=== PATIENT | male | born 1975 | race African-American/Black ===

== ENCOUNTER 2017-01-02 13:42 | Emergency (ER) | payer SELFPAY ==
[~2017-01-02] VITALS: Ht 172.7 cm; Wt 190.0 kg
[~2017-01-02 13:42] MED LIST: LISI-515 PO
[2017-01-02 13:44] VITALS: BP 231/119; PULSE 89; RESP 18; TEMP 97.9; O2SAT 98
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
[2017-01-02 14:24] LABS: AUTOMATED NEUTROPHIL # 4.5 TH/MM3 (1.8-7.7); BASOPHIL % 0.4 % (0.0-2.0); EOSINOPHIL # 0.4 TH/MM3 (0-0.4); EOSINOPHIL % 5.1 % (0.0-4.0); HEMATOCRIT 36.4 % (39.0-51.0); LYMPH % 23.1 % (9.0-44.0); LYMPHOCYTE # 1.7 TH/MM3 (1.0-4.8); MEAN CELL VOLUME 74.7 FL (80.0-100.0); MEAN CORPUSCULAR HEMOGLOBIN 24.9 PG (27.0-34.0); MEAN CORPUSCULAR HGB CONC 33.3 % (32.0-36.0); MONO % 8.9 % (0.0-8.0); NEUT % 62.5 % (16.0-70.0); PLATELET COUNT 342 TH/MM3 (150-450); RED BLOOD COUNT 4.87 MIL/MM3 (4.50-5.90); RED CELL DISTRIBUTION WIDTH 16.7 % (11.6-17.2); WHITE BLOOD COUNT 7.2 TH/MM3 (4.0-11.0)
[2017-01-02 14:25] LABS: HEMO FLAGS AUTO DIFF
[2017-01-02 14:35] LABS: BACTERIA, URINE RARE /hpf; BLOOD, URINE SMALL (NEG); COMMENT (UR) CULT NOT INDICATED; CULTURE IF INDICATED CULT NOT INDICATED; GLUCOSE,URINE NEG (NEG); KETONE, URINE NEG (NEG); MUCUS URINE FEW /lpf (OCC); NITRITE,URINE NEG (NEG); SQUAMOUS EPITHELIAL CELL URINE 1 /hpf (0-5); URINE COLOR YELLOW (YELLW/STRAW)
[2017-01-02 14:40] LABS: BICARBONATE 28.5 MEQ/L (21.0-32.0); POTASSIUM 3.8 MEQ/L (3.5-5.1)
[2017-01-02 15:02] LABS: SCAN/DIFF AUTO DIFF CONFIRMED
[2017-01-02] MEDS ORDERED: TRIAMCINOLONE ACETONIDE 0.1% CREAM 15 GM TOPICAL ONE (17:30)
[2017-01-02] MEDS ORDERED: diphenhydrAMINE HCL 50 MG/ML VIAL IV PUSH ONE (17:30)
[2017-01-02] MEDS ORDERED: methylPREDNISolone SOD SUCC 125 MG/2 ML VIAL IV PUSH ONE (17:30)
[2017-01-02 17:56] VITALS: BP 181/84; PULSE 72; RESP 20; O2SAT 95
[2017-01-02] MEDS ORDERED: LISINOPRIL 20 MG TAB PO ONE (18:15)
[2017-01-02] MEDS ORDERED: TRIAM.1%T TOPICAL (18:41)
[2017-01-02] MEDS ORDERED: PRED50 PO (18:41)
--- NOTE | 2017-01-02 18:41 | PD ---
Physical Exam Date Seen by Provider: Jan 02, 2017 Narrative For full history and physical examination please see previous provider's note. I seem care of this patient upon his arrival to a medical bed. Data Data Last Documented VS Vital Signs Date Time Temp Pulse Resp B/P Pulse Ox O2 Delivery O2 Flow Rate FiO2 01/02/17 17:56 72 20 181/84 95 Room Air 01/02/17 13:44 97.9 Orders Complete Blood Count With Diff (01/02/17 14:00) Basic Metabolic Panel (Bmp) (01/02/17 14:00) Urinalysis - C+S If Indicated (01/02/17 14:00) Wound Culture And Gram Stain (01/02/17 17:25) Iv Access Insert/Monitor (01/02/17 17:25) Methylprednisolone So Succ Inj (Solumedr (01/02/17 17:30) Triamcinolone 0.1% Cream (Aristocort 0.1 (01/02/17 17:30) Diphenhydramine Inj (Benadryl Inj) (01/02/17 17:30) Lisinopril (Prinivil) (01/02/17 18:15) Labs Laboratory Tests Test 01/02/17 01/02/17 14:02 14:08 Urine Color YELLOW Urine Turbidity CLEAR Urine pH 6.0 Urine Specific [place] 1.024 Urine Protein TRACE mg/dL Urine Glucose (UA) NEG mg/dL Urine Ketones NEG mg/dL Urine Occult Blood SMALL Urine Nitrite NEG Urine Bilirubin NEG Urine Urobilinogen 2.0 MG/DL Urine Leukocyte Esterase MOD Urine RBC 5 /hpf Urine WBC 6 /hpf Urine Squamous Epithelial 1 /hpf Cells Urine Bacteria RARE /hpf Urine Mucus FEW /lpf Microscopic Urinalysis Comment CULT NOT INDICATED White Blood Count 7.2 TH/MM3 Red Blood Count 4.87 MIL/MM3 Hemoglobin 12.1 GM/DL Hematocrit 36.4 % Mean Corpuscular Volume 74.7 FL Mean Corpuscular Hemoglobin 24.9 PG Mean Corpuscular Hemoglobin 33.3 % Concent Red Cell Distribution Width 16.7 % Platelet Count 342 TH/MM3 Mean Platelet Volume 6.9 FL Neutrophils (%) (Auto) 62.5 % Lymphocytes (%) (Auto) 23.1 % Monocytes (%) (Auto) 8.9 % Eosinophils (%) (Auto) 5.1 % Basophils (%) (Auto) 0.4 % Neutrophils # (Auto) 4.5 TH/MM3 Lymphocytes # (Auto) 1.7 TH/MM3 Monocytes # (Auto) 0.6 TH/MM3 Eosinophils # (Auto) 0.4 TH/MM3 Basophils # (Auto) 0.0 TH/MM3 CBC Comment AUTO DIFF Differential Comment AUTO DIFF CONFIRMED Sodium Level 141 MEQ/L Potassium Level 3.8 MEQ/L Chloride Level 107 MEQ/L Carbon Dioxide Level 28.5 MEQ/L Anion Gap 6 MEQ/L Blood Urea Nitrogen 10 MG/DL Creatinine 0.97 MG/DL Estimat Glomerular Filtration 104 ML/MIN Rate Random Glucose 95 MG/DL Calcium Level 8.3 MG/DL [facility] Medical Record Reviewed: Yes Supervised Visit with JENNIFER: No Interpretation(s) Laboratory Tests Test 01/02/17 01/02/17 14:02 14:08 Urine Color YELLOW Urine Turbidity CLEAR Urine pH 6.0 Urine Specific [place] 1.024 Urine Protein TRACE mg/dL Urine Glucose (UA) NEG mg/dL Urine Ketones NEG mg/dL Urine Occult Blood SMALL Urine Nitrite NEG Urine Bilirubin NEG Urine Urobilinogen 2.0 MG/DL Urine Leukocyte Esterase MOD Urine RBC 5 /hpf Urine WBC 6 /hpf Urine Squamous Epithelial 1 /hpf Cells Urine Bacteria RARE /hpf Urine Mucus FEW /lpf Microscopic Urinalysis Comment CULT NOT INDICATED White Blood Count 7.2 TH/MM3 Red Blood Count 4.87 MIL/MM3 Hemoglobin 12.1 GM/DL Hematocrit 36.4 % Mean Corpuscular Volume 74.7 FL Mean Corpuscular Hemoglobin 24.9 PG Mean Corpuscular Hemoglobin 33.3 % Concent Red Cell Distribution Width 16.7 % Platelet Count 342 TH/MM3 Mean Platelet Volume 6.9 FL Neutrophils (%) (Auto) 62.5 % Lymphocytes (%) (Auto) 23.1 % Monocytes (%) (Auto) 8.9 % Eosinophils (%) (Auto) 5.1 % Basophils (%) (Auto) 0.4 % Neutrophils # (Auto) 4.5 TH/MM3 Lymphocytes # (Auto) 1.7 TH/MM3 Monocytes # (Auto) 0.6 TH/MM3 Eosinophils # (Auto) 0.4 TH/MM3 Basophils # (Auto) 0.0 TH/MM3 CBC Comment AUTO DIFF Differential Comment AUTO DIFF CONFIRMED Sodium Level 141 MEQ/L Potassium Level 3.8 MEQ/L Chloride Level 107 MEQ/L Carbon Dioxide Level 28.5 MEQ/L Anion Gap 6 MEQ/L Blood Urea Nitrogen 10 MG/DL Creatinine 0.97 MG/DL Estimat Glomerular Filtration 104 ML/MIN Rate Random Glucose 95 MG/DL Calcium Level 8.3 MG/DL Vital Signs Date Time Temp Pulse Resp B/P Pulse Ox O2 Delivery O2 Flow Rate FiO2 01/02/17 17:56 72 20 181/84 95 Room Air 01/02/17 13:44 97.9 89 18 231/119 98 Differential Diagnosis Psoriasis versus eczema versus allergic reaction versus contact dermatitis versus hypertensive urgency versus elevated BP versus other Narrative Course Patient is a 41-year-old male presenting to emergency for evaluation of a rash to his bilateral arms and neck. Patient reports it's been ongoing for approximately one week, he has a history of psoriasis. He no longer has a primary care provider. He reports it as being very itchy he denies any fevers, chills, shortness of breath, chest pain. Patient also reports a boil to his right inner thigh that spontaneously drained. This is been there for several weeks. Patient has no other complaints at this time. He does state that he is under a lot of stress secondary to losing his job. CBC is unremarkable, eosinophils are slightly elevated. Chemistry is unremarkable Urinalysis with small amount of occult blood, 5 red blood cells, 6 WBCs. BP was elevated 231/119 on arrival, patient has not taken his lisinopril today, he states that he forgot. Blood pressure was reassessed at 6 PM at 181/84. Patient was given dose of lisinopril now. Patient was also given Solu-Medrol, Benadryl, topical triamcinolone cream. Patient is advised to follow-up with his primary care provider or with a police clerk. He can also follow-up at the [facility]. Take his blood pressure medications every day to avoid rebound hypertension. Patient was educated on medications that he was prescribed today again patient was encouraged to follow-up with a police clerk for further evaluation and management. Patient verbalized understanding of instructions. Patient is stable for discharge. Diagnosis Primary Impression: Benign essential hypertension Additional Impression: Psoriasis Referrals: Assistant Chief Nursing Officer Primary Care Physician Patient Instructions: General Instructions, Hypertension (ED), Psoriasis (ED) Additional Instruction: Follow-up at [facility] or with your primary care provider Follow-up with a police clerk Take your blood pressure medication on a daily basis, do not skip doses to avoid rebound hypertension Return to emergency department for any new or worsening symptoms Use medications as directed Med/Other Pt SpecificInfo: Prescription(s) given Scripts Triamcinolone Topical 0.1 % Oint1 Applic TOPICAL BID #60 GM Ref 0 Prov:Juliana Chua 01/02/17 Prednisone 50 Mg Tab50 Mg PO DAILY #3 TAB Ref 0 Prov:Juliana Chua 01/02/17 Condition: Stable Juliana Chua Jan 02, 2017 18:41
== END 2017-01-02 19:13 | disposition home or self-care (01) ==
LOC: NEPE 13:42
DX: I10 Essential (primary) hypertension (principal); L40.9 Psoriasis, unspecified
CPT/HCPCS: 80048; 81001; 85025; 86403; 87070; 87077; 87186; 87205; 96374; 96375; 99283; J1200; J2930

== ENCOUNTER 2017-04-09 14:04 | Emergency (ER) | payer SELFPAY ==
[~2017-04-09] VITALS: Ht 172.7 cm; Wt 180.0 kg
[~2017-04-09 14:04] MED LIST changes: +PRED50 PO; +TRIAM.1%T TOPICAL
[2017-04-09 14:06] VITALS: BP 226/109; PULSE 77; RESP 15; TEMP 98.2; O2SAT 99
[2017-04-09] MEDS ORDERED: LIDOCAINE HCL 1% 50 ML VIAL INFIL ONE (14:30)
[2017-04-09] MEDS ORDERED: BACT800T5 PO (14:58)
--- NOTE | 2017-04-09 14:58 | PD ---
HPI Chief Complaint: Skin Problem Time Seen by Provider: 14:18 Travel History International Travel<30 days: No Contact w/Intl Traveler<30days: No Traveled to known affect area: No History of Present Illness HPI 41-year-old man presents emergent [place] of a boil on his right leg. He states he been more painful red and swollen and draining some purulent drainage for the past couple days. Worsening. Has similar symptoms one time before. No other complaints. History Past Medical History Medical History: Denies Significant Hx PNEUMOCCOCAL Vaccine (Year): 2 Social History Alcohol Use: Yes Tobacco Use: Yes Allergies-Medications (Allergen,Severity, Reaction): Coded Allergies: Penicillin (Verified Allergy, Severe, HIVES, 01/02/17) *MDRO Multi-Drug Resistant Organism (Verified Adverse Reaction, Unknown, ) MRSA (leg)-01/02/17 Reported Meds & Prescriptions Reported Meds & Active Scripts Active Triamcinolone Topical (Triamcinolone Acetonide) 0.1 % Oint 1 Applic TOPICAL BID Prednisone 50 Mg Tab 50 Mg PO DAILY Reported Lisinopril 20 Mg Tab 20 Mg PO DAILY Review of Systems Except as stated in HPI: all other systems reviewed are Neg Physical Exam Narrative GENERAL: Morbidly obese 41-year-old man, no acute distress. SKIN: Warm and dry. CARDIOVASCULAR: Warm and well perfused. RESPIRATORY: Normal rate and effort. MUSCULOSKELETAL: Obese thigh, on the medial side of the right leg, there is some erythema redness. There is multiple scarring. There is some spontaneous drainage. NEUROLOGICAL: Awake and alert. No gross deficits. Data Data Last Documented VS Vital Signs Date Time Temp Pulse Resp B/P Pulse Ox O2 Delivery O2 Flow Rate FiO2 04/09/17 14:06 98.2 77 15 226/109 99 Orders Lidocaine 1% Inj (50 Ml) (Xylocaine 1% I (04/09/17 14:30) MDM Medical Decision Making Medical Screen Exam Complete: Yes Emergency Medical Condition: Yes Differential Diagnosis Abscess, scarring, cellulitis, other Narrative Course Medical decision making 41-year-old male with abscess was read in her thigh. Straining a little bit but needed to be open more. I&D is performed the bedside. We'll place on antibiotics. Outpatient follow-up. Procedures Procedure Narrative INCISION AND DRAINAGE OF ABSCESS: The area was prepped and was sterilely draped. A subcutaneous wheal of % Xylocaine 1 with a total number for mL was used to anesthetize the area. The area was properly anesthetized. A number 11 scalpel was used to make a 1-cm incision across the area of the abscess. Cultures were obtained. The abscess was drained an irrigated with normal saline. Quarter inch iodoform packing was placed in the wound. Sterile dressing applied. Patient advised to have packing removed in two days. Diagnosis Primary Impression: Abscess of right thigh Additional Instructions: Take Bactrim as prescribed. Apply warm compresses several times daily. Return to the emergency department for any new or worsening symptoms. Med/Other Pt SpecificInfo: Prescription(s) given Scripts Sulfamethoxazole-Trimethoprim (Bactrim DS)800-160 Mg Tab1 Tab PO BID 7 Days Prov:Ephraim Timmons MD 04/09/17 Disposition: 01 DISCHARGE HOME Condition: Stable Ephraim Timmons MD Apr 09, 2017 14:58
== END 2017-04-09 15:14 | disposition home or self-care (01) ==
LOC: NEPD 14:04
DX: L02.415 Cutaneous abscess of right lower limb (principal); Z72.0 Tobacco use
CPT/HCPCS: 10061

== ENCOUNTER 2017-07-24 12:37 | Emergency (ER) | payer OTHER ==
[~2017-07-24] VITALS: Ht 170.2 cm; Wt 180.0 kg
[~2017-07-24 12:37] MED LIST changes: +BACT800T5 PO
[2017-07-24 12:38] VITALS: BP 205/132; PULSE 102; RESP 24; TEMP 99.1; O2SAT 98
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
[2017-07-24] MEDS ORDERED: NAPROXEN 500 MG TAB PO ONE (13:00)
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
[2017-07-24] MEDS ORDERED: METO50TA PO (13:12)
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
[2017-07-24] MEDS ORDERED: MELO7.5T4 PO (14:06)
[2017-07-24 14:13] VITALS: BP 172/92
== END 2017-07-24 14:31 | disposition home or self-care (01) ==
LOC: NEPD 12:37
DX: M17.11 Unilateral primary osteoarthritis, right knee (principal); M54.5 Low back pain; J45.909 Unspecified asthma, uncomplicated; I10 Essential (primary) hypertension; V49.59XA Passenger injured in collision with other motor vehicles in traffic accident, initial encounter; Y92.410 Unspecified street and highway as the place of occurrence of the external cause; Z72.0 Tobacco use
CPT/HCPCS: 72100; 73564; 99284

== ENCOUNTER 2017-12-19 07:32 | Emergency (ER) | payer SELFPAY ==
[~2017-12-19] VITALS: Ht 172.7 cm; Wt 180.0 kg
[~2017-12-19 07:32] MED LIST changes: -BACT800T5 PO; +MELO7.5T27 PO; +METO50TA PO; -PRED50 PO; -TRIAM.1%T TOPICAL
[2017-12-19 07:35] VITALS: BP 259/136; PULSE 94; RESP 16; TEMP 98.1; O2SAT 98
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
[2017-12-19] MEDS ORDERED: CLON0.1T PO (07:45)
[2017-12-19] MEDS ORDERED: cloNIDine HCL 0.1 MG TAB PO ONE (08:00)
[2017-12-19] MEDS ORDERED: LISINOPRIL 20 MG TAB PO ONE (08:00)
[2017-12-19] MEDS ORDERED: LISI-515 PO (08:56)
[2017-12-19] MEDS ORDERED: METO50TA PO (08:56)
== END 2017-12-19 10:05 | disposition home or self-care (01) ==
LOC: NEPE 07:32
DX: I10 Essential (primary) hypertension (principal); E66.01 Morbid (severe) obesity due to excess calories; R51 Headache; J45.909 Unspecified asthma, uncomplicated; Z91.14 Patient's other noncompliance with medication regimen; Z72.0 Tobacco use
CPT/HCPCS: 99283

== ENCOUNTER 2018-07-29 03:49 | Inpatient (IN) ==
--- NOTE | 2018-07-29 04:11 | ED ---
HPI General Chief Complaint: Headache Stated Complaint: Medical Time Seen by Provider: 07/29/18 04:01 Source: patient Mode of arrival: ambulatory Limitations: no limitations History of Present Illness HPI Narrative: The patient is a 43-year-old super morbidly obese male with a BMI over 60 presenting with complaint of headache and a blood pressure of 233/ 126 at bedside and 243/125 at triage. Patient is taking lisinopril and hydrochlorothiazide but she ran last week and has not had any medications for 7 days. Admits to hypertension no other medical problems. Stated headache started earlier last night around 8 PM and gradually progress throughout the night. He denies nausea vomiting. MD Complaint: headache Onset (ago): hour(s) (8) Onset description: gradual Location: diffuse Severity: severe Severity scale (1-10): 10 Quality: aching and throbbing Relieving factors: nothing Exacerbating factors: none Associated symptoms: nausea Treatments prior to arrival: none Related Data Home Medications Medication Instructions Recorded Confirmed hydrochlorothiazide 25 mg PO DAILY 07/29/18 07/29/18 lisinopril 10 mg PO DAILY 07/29/18 07/29/18 Allergies Allergy/AdvReac Type Severity Reaction Status Date / Time penicillin G Allergy Severe HIVES Unverified 07/29/18 03:53 *MDRO Multi-Drug Resistant AdvReac Unknown Confusion Uncoded 07/29/18 03:53 Organism Review of Systems ROS: all other systems reviewed are negative [facility] Medical History Medical History Hypertension (Acute) Surgical History Surgical History History of surgery on arm (Acute) Social History Social History Substance History: No History of Abuse Smoking Status: Former smoker How Often Do You Have a Drink Containing Alcohol: Monthly or less Recent Travel in [facility] within the Last 8 Weeks: No Recent Out of Country Travel within the Last 8 Weeks: No Immunization History Tetanus Immunization: Unsure Hx Influenza Vaccine This Season: No Exam Narrative Exam Narrative: GENERAL: Alert and oriented in mild distress due to headache/ migraine SKIN: Focused skin assessment warm/dry. HEAD: Atraumatic. Normocephalic. EYES: Pupils equal and round. No scleral icterus. No injection or drainage. ENT: No nasal bleeding or discharge. Mucous membranes pink and moist. NECK: Trachea midline. No JVD. CARDIOVASCULAR: Regular rate and rhythm. No murmur appreciated. RESPIRATORY: No accessory muscle use. Clear to auscultation. Breath sounds equal bilaterally. GASTROINTESTINAL: Morbidly obese, abdomen soft, non-tender, nondistended. Hepatic and splenic margins not palpable. MUSCULOSKELETAL: No obvious deformities. No clubbing. No cyanosis. No edema. NEUROLOGICAL: Awake and alert. No obvious cranial nerve deficits. Motor grossly within normal limits. Normal speech. PSYCHIATRIC: Appropriate mood and affect; insight and judgment normal. Course Reevaluation(s) Reevaluation #1: Blood pressure still elevated after 0.2 of clonidine will give Vasotec 2.5 IV. Headache has improved at this time. Time: 05:03 Reevaluation #2: Patient with persistently elevated BP of 195/94 after clonidine and Vasotec IV. Will placed on Cardene drip. Headache states is improving. Time: 05:58 Initial Documented Vital Signs Temperature 97.7 F 07/29/18 03:53 Pulse Rate 101 H 07/29/18 03:53 Respiratory Rate 23 07/29/18 03:53 Blood Pressure 243/125 H 07/29/18 03:53 Pulse Oximetry 94 L 07/29/18 03:53 Last Documented Vital Signs Temperature 97.7 F 07/29/18 03:53 Pulse Rate 92 H 07/29/18 05:46 Respiratory Rate 18 07/29/18 04:04 Blood Pressure 195/94 H 07/29/18 05:46 Pulse Oximetry 97 07/29/18 05:02 Critical Care Time Critical Care Time: Yes Total Critical Care Time: 45 Attestation: Aggregate critical care time was 45 minutes. Time to perform other separately billable procedures was not included in the critical care time. My time did not include minutes spent treating any other patients simultaneously or on activities that did not directly contribute to the patient's treatment. The services I provided to this patient were to treat and/or prevent clinically significant deterioration that could result in: Loss of current lifestyle. Permanent disability and/or I provided critical care services requiring my management, as noted below: Chart data review, documentation time, medication orders and management, vital sign assessments/reviewing monitor data, ordering and reviewing lab tests, ordering and interpreting/reviewing x-rays and diagnostic studies, care of the patient and discussion of the patient with the admitting physicians. Medical Decision Making MDM Narrative Medical Screen Exam Complete: Yes Emergency Medical Condition: Yes Lab Data Result diagrams: 07/29/18 04:10 07/29/18 04:10 Lab Results 07/29/18 07/29/18 07/29/18 Range/Units 04:10 04:10 04:10 WBC 9.1 (4.0-11.0) th/mm3 RBC 5.12 (4.50-5.90) mil/mm3 Hgb 12.4 L (13.0-17.0) gm/dL Hct 37.4 L (39.0-51.0) % MCV 73.1 L (80.0-100.0) fL MCH 24.2 L (27.0-34.0) pg MCHC 33.1 (32.0-36.0) % RDW 18.3 H (11.6-17.2) % Plt Count 411 (150-450) th/mm3 MPV 7.5 (7.0-11.0) fL Neut % (Auto) 60.2 (16.0-70.0) % Lymph % (Auto) 26.2 (9.0-44.0) % [place] % (Auto) 9.4 H (0.0-8.0) % Eos % (Auto) 2.9 (0.0-4.0) % Baso % (Auto) 1.3 (0.0-2.0) % Neut # (Auto) 5.5 (1.8-7.7) th/mm3 Lymph # (Auto) 2.4 (1.0-4.8) th/mm3 [place] # (Auto) 0.9 (0.0-0.9) th/mm3 Eos # (Auto) 0.3 (0.0-0.4) th/mm3 Baso # (Auto) 0.1 (0.0-0.2) th/mm3 WBC Differential . Differential Comment Auto diff final Sodium 142 (136-145) meq/L Potassium 4.1 (3.5-5.1) meq/L Chloride 109 H (98-107) meq/L Carbon Dioxide 22.4 (21.0-32.0) meq/L Anion Gap 11 (5-15) meq/L BUN 11 (7-18) mg/dL Creatinine 0.96 (0.60-1.30) mg/dL Estimated GFR Greater than 89 (>89) mL/min Random Glucose 103 (74-106) mg/dL Calcium 8.0 L (8.5-10.1) mg/dL Troponin I 0.02 (0.02-0.05) ng/mL B-Natriuretic Peptide 56 (0-100) pg/mL Urine Color (Yellw/Straw) Urine Clarity (Clear) Urine pH (5.0-8.5) Ur Specific [place] (1.002-1.035) Urine Protein (Neg-Trace) mg/dL Urine Glucose (UA) (Negative) mg/dL Urine Ketones (Negative) mg/dL Urine Occult Blood (Negative) Urine Nitrate (Negative) Urine Bilirubin (Negative) Urine Urobilinogen (Less than 2) mg/dL Ur Leukocyte Esterase (Negative) Urine RBC (0-3) /hpf Urine WBC (0-5) /hpf Ur Squamous Epith Cells (0-5) /hpf Urine Mucus (Occasional) /lpf Ur Microscopic Review Urine Opiates Screen (Neg) Ur Barbiturates Screen (Neg) Ur Amphetamines Screen (Neg) U Benzodiazepines Scrn (Neg) Urine Cocaine Screen (Neg) U Cannabinoids Screen (Neg) 07/29/18 07/29/18 Range/Units 04:49 04:49 WBC (4.0-11.0) th/mm3 RBC (4.50-5.90) mil/mm3 Hgb (13.0-17.0) gm/dL Hct (39.0-51.0) % MCV (80.0-100.0) fL MCH (27.0-34.0) pg MCHC (32.0-36.0) % RDW (11.6-17.2) % Plt Count (150-450) th/mm3 MPV (7.0-11.0) fL Neut % (Auto) (16.0-70.0) % Lymph % (Auto) (9.0-44.0) % [place] % (Auto) (0.0-8.0) % Eos % (Auto) (0.0-4.0) % Baso % (Auto) (0.0-2.0) % Neut # (Auto) (1.8-7.7) th/mm3 Lymph # (Auto) (1.0-4.8) th/mm3 [place] # (Auto) (0.0-0.9) th/mm3 Eos # (Auto) (0.0-0.4) th/mm3 Baso # (Auto) (0.0-0.2) th/mm3 WBC Differential Differential Comment Sodium (136-145) meq/L Potassium (3.5-5.1) meq/L Chloride (98-107) meq/L Carbon Dioxide (21.0-32.0) meq/L Anion Gap (5-15) meq/L BUN (7-18) mg/dL Creatinine (0.60-1.30) mg/dL Estimated GFR (>89) mL/min Random Glucose (74-106) mg/dL Calcium (8.5-10.1) mg/dL Troponin I (0.02-0.05) ng/mL B-Natriuretic Peptide (0-100) pg/mL Urine Color Straw (Yellw/Straw) Urine Clarity Clear (Clear) Urine pH 5.0 (5.0-8.5) Ur Specific [place] 1.009 (1.002-1.035) Urine Protein Negative (Neg-Trace) mg/dL Urine Glucose (UA) Negative (Negative) mg/dL Urine Ketones Negative (Negative) mg/dL Urine Occult Blood Small H (Negative) Urine Nitrate Negative (Negative) Urine Bilirubin Negative (Negative) Urine Urobilinogen Less than 2 (Less than 2) mg/dL Ur Leukocyte Esterase Negative (Negative) Urine RBC Less than 1 (0-3) /hpf Urine WBC 2 (0-5) /hpf Ur Squamous Epith Cells <1 (0-5) /hpf Urine Mucus Few H (Occasional) /lpf Ur Microscopic Review Not Reportable Urine Opiates Screen Neg (Neg) Ur Barbiturates Screen Neg (Neg) Ur Amphetamines Screen Neg (Neg) U Benzodiazepines Scrn Neg (Neg) Urine Cocaine Screen Neg (Neg) U Cannabinoids Screen Pos H (Neg) Imaging Data Radiologist's impression: Chest X-Ray 07/29/18 04:05 CONCLUSION: No acute cardiopulmonary disease identified. Head CT 07/29/18 04:06 CONCLUSION: 1. No acute intracranial findings. 2. Left-sided maxillary sinus disease. . ECG Data Attestation: I personally reviewed and interpreted this ECG as follows: Interpretation: Normal sinus rhythm 93 bpm LVH noted nonspecific ST-T wave abnormalities QTc 429 MS AK interval 179 Discharge Plan Discharge Disposition Patient Disposition: 30 Still Patient Discharge Condition Condition: Serious Discharge Details Diagnosis: Hypertensive emergency without congestive heart failure, Non compliance w medication regimen, Hematuria, Headache Physicians Team ED Provider: Dylon Srinivasan Primary Care Provider: Primary Care Hermelinda Krishna Attending Provider: Nixon Noble Discharge Interventions Interventions: Vital Signs Last Done: 07/29/18 05:46 Status ED Status: Admitted Patient
[2018-07-29 04:19] LABS: Baso # (Auto) 0.1 th/mm3 (0.0-0.2); Baso % (Auto) 1.3 % (0.0-2.0); Eos # (Auto) 0.3 th/mm3 (0.0-0.4); Eos % (Auto) 2.9 % (0.0-4.0); Hematocrit 37.4 % (39.0-51.0); Hemoglobin 12.4 gm/dL (13.0-17.0); Lymph # (Auto) 2.4 th/mm3 (1.0-4.8); Lymph % (Auto) 26.2 % (9.0-44.0); Mean Corpuscular HGB Conc 33.1 % (32.0-36.0); Mean Corpuscular Hemoglobin 24.2 pg (27.0-34.0); Mean Corpuscular Volume 73.1 fL (80.0-100.0); Mean Platelet Volume 7.5 fL (7.0-11.0); Mono # (Auto) 0.9 th/mm3 (0.0-0.9); Mono % (Auto) 9.4 % (0.0-8.0); Neut # (Auto) 5.5 th/mm3 (1.8-7.7); Neut % (Auto) 60.2 % (16.0-70.0); Platelet Count 411 th/mm3 (150-450); Red Blood Count 5.12 mil/mm3 (4.50-5.90); Red Cell Distribution Width 18.3 % (11.6-17.2); White Blood Count 9.1 th/mm3 (4.0-11.0)
--- NOTE | 2018-07-29 04:34 | CT ---
EXAM DATE: 07/29/2018 4:21 AM EDT AGE/SEX: 43 years / Male INDICATIONS: Headaches. CLINICAL DATA: This is the patient's initial encounter. Patient reports that signs and symptoms have been present for 1 day and indicates a pain score of 10/10. MEDICAL/SURGICAL HISTORY: Hypertension. None. RADIATION DOSE: 64.63 CTDI (mGy) COMPARISON: [facility] [place], CT BRAIN W/O CONTRAST, 10/12/2016. . TECHNIQUE: CT of the head without contrast. Using automated exposure control and adjustment of the mA and/or kV according to patient size, radiation dose was kept as low as reasonably achievable to ob tain optimal diagnostic quality images. DICOM format image data is available electronically for revi ew and comparison. FINDINGS: Cerebrum: The ventricles are normal for age. No evidence of midline shift, mass lesion, hemorrhage or acute infarction. No extraaxial fluid collections are seen. Posterior Fossa: The cerebellum and brainstem are intact. The 4th ventricle is midline. The cerebe llopontine angle is unremarkable. Extracranial: Partial opacification of the left maxillary sinus with 1 cm polyp or retention cyst an teriorly. Skull: The calvaria is intact. No evidence of skull fracture. CONCLUSION: 1. No acute intracranial findings. 2. Left-sided maxillary sinus disease. . Electronically signed by: Isac Jolly MD 07/29/2018 4:32 AM EDT
--- NOTE | 2018-07-29 04:35 | XR ---
EXAM DATE: 07/29/2018 4:18 AM EDT AGE/SEX: 43 years / Male INDICATIONS: Short of breath. CLINICAL DATA: This is the patient's initial encounter. Patient reports that signs and symptoms have been present for 1 day and indicates a pain score of 0/10. MEDICAL/SURGICAL HISTORY: Hypertension. None. COMPARISON: [facility] [place], CHEST SINGLE AP, 10/12/2016. . FINDINGS: Single AP view the chest The lungs are clear. Cardiomediastinal silhouette unchanged. No evidence of pleural effusion or pneumothorax. CONCLUSION: No acute cardiopulmonary disease identified. Electronically signed by: Isac Jolly MD 07/29/2018 4:33 AM EDT
[2018-07-29 04:41] LABS: Troponin I 0.02 ng/mL (0.02-0.05)
[2018-07-29 04:42] LABS: Anion Gap 11 meq/L (5-15); Blood Urea Nitrogen 11 mg/dL (7-18); Carbon Dioxide 22.4 meq/L (21.0-32.0); Chloride 109 meq/L (98-107); Glomerular Filtration Rate Greater Than 89 mL/min (>89); Glucose,Random 103 mg/dL (74-106); Potassium 4.1 meq/L (3.5-5.1); Sodium 142 meq/L (136-145)
[2018-07-29] MEDS ORDERED: Butalbital/APAP/Caff 50/325/40 MG Tablet PO ONE (05:05)
[2018-07-29 05:19] LABS: Amphetamine Screen,Urine Neg (Neg); Barbiturate Screen,Urine Neg (Neg); Cannabinoid Screen,Urine Pos (Neg); Cocaine Screen,Urine Neg (Neg)
[2018-07-29 05:21] LABS: Bilirubin,Urine Negative (Negative); Clarity,Urine Clear (Clear); Color,Urine Straw (Yellw/Straw); Glucose,Urine (UA) Negative (Negative); Leukocyte Esterase,Urine Negative (Negative); Mucus,Urine Few /lpf (Occasional); Nitrite,Urine Negative (Negative); Specific Gravity,Urine 1.009 (1.002-1.035); Squamous Epithelial Cell,Urine <1 /hpf (0-5)
[2018-07-29 05:22] LABS: Opiate Screen,Urine Neg (Neg)
[2018-07-29] MEDS ORDERED: niCARdipine Inj 25 MG in Sodium Chlor 0.9% Inj 240 ML IV.CONT PRN (05:48)
[2018-07-29] MEDS ORDERED: Bisacodyl 10 MG Supp RECTAL PRN (06:18)
[2018-07-29] MEDS: Lisinopril 10 MG Tablet PO SCH (08:20)
[2018-07-29] MEDS: hydroCHLOROthiazide 25 MG Tablet PO SCH (08:20)
[2018-07-29] MEDS: Metoprolol Tartrate 50 MG Tablet PO SCH ×3 (09:20→17:03)
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
--- NOTE | 2018-07-29 18:22 | ECG ---
Date Performed: 07/29/2018 Time Performed: 04:11:54 PTAGE: 43 years EKG: Sinus rhythm LEFT VENTRICULAR HYPERTROPHY AND ST-T CHANGE Since the previous tracing, no significant change noted ABNORMAL ECG NO PREVIOUS TRACING DOCTOR: Da Mann Interpretating Date/Time 07/29/2018 18:19:59
[2018-07-30 08:02] LABS: Chol/HDL Ratio 2.08 Ratio; HDL Cholesterol 37.8 mg/dL (40.0-60.0)
[2018-07-30] MEDS: Metoprolol Tartrate 50 MG Tablet PO SCH ×3 (09:31→19:15)
[2018-07-30] MEDS: Lisinopril 10 MG Tablet PO SCH (09:31)
[2018-07-30] MEDS: hydroCHLOROthiazide 25 MG Tablet PO SCH (09:31)
[2018-07-30] MEDS ORDERED: Lisinopril 10 MG Tablet PO ONE (17:00)
--- NOTE | 2018-07-30 17:01 | P.PN ---
Subjective Interval history: Nursing denies any deterioration since last night. Patient himself says he feels good. Wants to go home. Denies any headache. Physical Exam Vital signs: Vital Signs 07/29/18 18:00 07/29/18 19:00 07/29/18 20:00 Temperature 98.5 F Pulse Rate 74 64 56 L Respiratory Rate 18 Blood Pressure 160/96 H Pulse Oximetry 98 07/29/18 21:00 07/29/18 22:00 07/29/18 23:00 Temperature Pulse Rate 62 58 L 58 L Respiratory Rate Blood Pressure Pulse Oximetry 07/30/18 00:00 07/30/18 01:00 07/30/18 02:00 Temperature 98.3 F Pulse Rate 58 L 54 L 54 L Respiratory Rate 18 Blood Pressure 156/97 H Pulse Oximetry 98 07/30/18 03:00 07/30/18 03:30 07/30/18 04:00 Temperature 98.4 F Pulse Rate 56 L 53 L 58 L Respiratory Rate 18 Blood Pressure 180/106 H Pulse Oximetry 97 07/30/18 04:30 07/30/18 05:00 07/30/18 05:30 Temperature Pulse Rate 58 L 67 54 L Respiratory Rate Blood Pressure 174/79 H 172/89 H Pulse Oximetry 07/30/18 06:00 07/30/18 06:23 07/30/18 07:00 Temperature Pulse Rate 58 L 57 L 57 L Respiratory Rate Blood Pressure 159/88 H Pulse Oximetry 07/30/18 08:00 07/30/18 09:00 07/30/18 09:31 Temperature 97.8 F Pulse Rate 54 L 64 65 Respiratory Rate 18 Blood Pressure 153/91 H Pulse Oximetry 95 07/30/18 10:00 07/30/18 11:00 07/30/18 12:00 Temperature 98.5 F Pulse Rate 58 L 58 L 56 L Respiratory Rate 18 Blood Pressure 170/94 H Pulse Oximetry 98 07/30/18 13:00 07/30/18 14:00 07/30/18 15:00 Temperature Pulse Rate 52 L 51 L 51 L Respiratory Rate Blood Pressure Pulse Oximetry 07/30/18 15:35 07/30/18 16:00 Temperature 97.9 F Pulse Rate 49 L 61 Respiratory Rate 18 Blood Pressure 174/101 H Pulse Oximetry 95 Intake & Output 07/29/18 07/30/18 07/30/18 18:59 06:59 18:59 Intake Total 960 / 960 480 / 480 Output Total 475 / 475 Balance 960 / 960 5 / 5 Weight 222.2 kg Intake: Oral 960 / 960 480 / 480 Output: Urine 475 / 475 Other: # Voids 2 1 Date of Last Bowel Movement 07/29/18 # Bowel Movements 0 Narrative: Morbidly obese male Muffled heart sounds Clear lungs bilaterally, unlabored breathing Results - Labs CBC & Chem 7: 07/29/18 04:10 07/29/18 04:10 Laboratory Results - last 24 hr 07/30/18 06:11 Triglycerides 84 Cholesterol 79 L LDL Cholesterol, Calc 24 HDL Cholesterol 37.8 L Cholesterol/HDL Ratio 2.08 Assessment and Plan - Plan 43-year-old black male admitted for hypertensive emergency Symptoms have resolved. Blood pressure still elevated, will attempt to bring it down to the. If stable with systolic less than 160 can be discharged home with new medications and list for new primary care provided to the patient and see and help manage his blood pressure.
[2018-07-30] MEDS: NIFEdipine 10 MG Capsule PO SCH (18:30)
[2018-07-31] MEDS: NIFEdipine 10 MG Capsule PO SCH ×2 (00:38→05:17)
[2018-07-31 08:11] VITALS: BP 155/88; PULSE 60; RESP 20; TEMP 97.9; O2SAT 95
[2018-07-31] MEDS: hydroCHLOROthiazide 25 MG Tablet PO SCH (08:46)
[2018-07-31] MEDS: Metoprolol Tartrate 50 MG Tablet PO SCH (08:47)
[2018-07-31] MEDS ORDERED: Lisinopril 20 MG Tablet PO SCH (09:00)
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
== END 2018-07-31 11:00 | disposition home or self-care (01) ==
LOC: NEPC 03:49 → NEDA 06:22 → HCIS 11:17
PROVIDERS: ADMIT Hospitalist; ATTEND Hospitalist